=== PATIENT | male | born 2000 | race Caucasian/White ===

== ENCOUNTER 2020-04-17 10:18 | Observation (INO) ==
[2020-04-17] MEDS ORDERED: ONDANSETRON INJ 2 MG/ML 2 ML VIAL IV STA (10:59)
[2020-04-17] MEDS ORDERED: SODIUM CHLORIDE 0.9% 1000ML 1,000 ML IV SCH (11:00)
[2020-04-17] MEDS ORDERED: IOVERSOL 100ml IV ONE (11:06)
[2020-04-17 11:29] LABS: Basophils # (auto) 0.03 K/uL (0-0.2); Basophils % (auto) 0.3 %; Eosinophils # (auto) 0.01 K/uL (0-0.5); Eosinophils % (auto) 0.1 %; Hematocrit (blood only) 42.3 % (42-52); Hemoglobin 15.1 g/dL (14.0-18.0); Immature Granulocytes # (auto) 0.01 K/uL (0.00-0.02); Immature Granulocytes % (auto) 0.1 %; Lymphocytes # (auto) 1.77 K/uL (1.2-3.4); Lymphocytes % (auto) 16.6 %; Mean Corpuscular Hemoglobin 29.8 pg (25-34); Mean Corpuscular Hgb Conc 35.7 g/dL (32-36); Mean Corpuscular Volume 83.6 fL (80-100); Mean Platelet Volume 10.8 fL (7.4-10.4); Monocytes # (auto) 0.69 K/uL (0.11-0.59); Monocytes % (auto) 6.5 %; Neutrophils # (auto) 8.13 K/uL (1.4-6.5); Neutrophils % (auto) 76.4 %; Platelet Count 230 K/uL (130-400); RDW Coefficient of Variation 12.1 % (11.5-14.5); RDW Standard Deviation 36.5 fL (36.4-46.3); Red Blood Count 5.06 M/uL (4.7-6.1); White Blood Count 10.64 K/uL (4.8-10.8)
[2020-04-17 11:29] LABS: iSTAT Creatinine 0.9 mg/dl (0.6-1.3); iSTAT Hemoglobin 14.6 g/dl (14.0-18.0); iSTAT Ionized Calcium 1.26 mmol/l (1.12-1.32); iSTAT Potassium 3.7 mmol/L (3.3-5.0)
--- NOTE | 2020-04-17 11:30 | Emergency Department Note ---
Impression & Plan Abdominal pain, acute, left upper quadrant, Cerebral contusion, Contusion of hip ED Provider Note NAME: SD PERALTA IV AGE: 19 SEX: M : 2000 ARRIVES VIA: Walk-In INFORMANT: Patient, ED PROVIDER(S): Moy Mckeon DO CHIEF COMPLAINT: Left-sided abdominal pain HPI: The patient is a 19-year-old male who presented to the emergency department for an evaluation of abdominal pain. The patient states that he was drinking h eavily with friends last evening. He states that he "blacked out". The patient fell to the ground and he states that he struck the left hip. The patient has been having left-sided abdominal pain ever since. He denies having any nausea or vomiting. He has had no fevers. He denies having any chest pain neck pain or headache. The patient states that he has been able to ambulate without difficulty. He did not take any medications prior to arrival. The patient has had very significant episodes of nausea and vomiting. The patient is never had similar symptoms in the past. He states his pain is moderate to severe and worsened with ambulation as well as palpation over the abdomen. ROS: See above HPI for pertinent positives & negatives. A total of 10 systems reviewed and were otherwise negative. PAST MEDICAL HISTORY: See Below PAST SURGICAL HISTORY: See Below FAMILY HISTORY: See Below SOCIAL HISTORY: See Below HOME MEDICATIONS: See Below ALLERGIES: See Below VITALS: See Below PHYSICAL EXAMINATION: GENERAL: The patient is awake and alert. He is somewhat anxious appearing and appears to be in significant pain. EYES: The conjunctivae are clear. The pupils are round and reactive. EARS, NOSE, MOUTH AND THROAT: The nose is without any evidence of any deformity. Mucous membranes are dry. NECK: The neck is nontender and supple. RESPIRATORY: Normal respiratory effort is noted there is no evidence of wheezing rhonchi or rales CARDIOVASCULAR: Regular rate and rhythm noted there no murmurs rubs or gallops normal S1 normal S2. GASTROINTESTINAL: The abdomen is soft. There is significant left upper quadrant tenderness to palpation. There is mild guarding in the left upper quadrant. BACK: No midline tenderness or or step-off noted range of motion in flexion extension as well as rotation no signs of muscle spasm noted MUSCULOSKELETAL/EXTREMITIES: There is no evidence of gross deformity full range of motion is noted in the hips and shoulders. There is no tenderness over the rib cage. SKIN: There is no obvious evidence of any rash. There are no petechiae, pallor or cyanosis noted. No ecchymosis was appreciated over the flank. NEUROLOGIC: Patient is awake alert and oriented x3 strength is symmetric patellar reflexes are 2+ bilaterally MEDICAL DECISION MAKING: The patient is a 19-year-old male who presented to the emergency department for left-sided abdominal pain. The patient through the history appears to have been drinking significant amounts of alcohol last night. He states that he "blacked out" and may have fallen. He was having left hip pain as well as left-sided abdominal pain. He also is unsure if he struck his head. The patient had no focal neurologic deficits but given his presentation and the uncertainty CT the head neck was obtained as well as CT the abdomen and pelvis. Lungs were clear and chest x-ray showed no acute traumatic injury. I discussed the patient's lab oratory and radiographic studies with him. His abdominal pain improved significantly and there is no signs of splenic injury or intra-abdominal trauma. I also discussed his case with the [facility] hospitalist group as well as the [facility] neurologist. Likely patient will require repeat neuroimaging but I feel at this time he is safe to be kept at our facility. I discussed patient's laboratory and radiographic studies with him. Triage Nursing notes reviewed. Prior medical records reviewed Vital Signs: reviewed and remarkable for elevated blood pressure. Differential diagnosis: Appendicitis, testicular torsion, infections, diverticulitis, UTI, obstruction, mesenteric ischemia, aortic pathology, inflammatory bowel disease, renal colic, PUD, pancreatitis, biliary pathology, hernia, volvulus, constipation, as well as other pathologies. ER treatment provided: See below Diagnostics interpreted by me: ECG: none Cardiac Monitoring: An order was placed for continuous cardiac monitoring. The monitor shows a rate of 88 with normal sinus rhythm. Laboratory studies: As stated above and show below. Imaging studies: See below Consultation(s): 3646: I discussed this case with Dr. Jones. She was on-call for [facility] neurology. 1400: I discussed this case with Dr. Amanda. ED COURSE: Procedures: none PDMP:reviewed and no issues Critical Care: None Past Med/Surg History Family History (Updated 04/17/20 @ 14:42 by Jovan Amanda MD) Other No family history of disorders Social History (Updated 04/17/20 @ 11:28 by Moy Mckeon DO) Smoking Status: Never smoker Hx Alcohol Use: Yes Alcohol type: beer, wine and hard liquor Alcohol Intake Frequency: 2-3 x/Week Hx Substance Use: No Preferred Language: Bolivian Communication Ability: Effective Dinkey Operator Slag Required: No Beliefs That Will Affect Care: None Current Living Situation: Family Current Living Situation Comment: House Other Information That Helps Us Care for You: No Feels Safe at Home: Yes Safety Concerns: Feels Safe At This Time Allergies Allergies Allergy/AdvReac Type Severity Reaction Status Date / Time No Known Allergies Allergy Unverified 04/17/20 11:43 Home Meds Home Medications Medication Instructions Recorded Confirmed No Known Home Medications 04/17/20 04/17/20 Results & Data (ED) Vital Signs Vital Signs - 24 hr 04/17/20 10:44 04/17/20 11:31 04/17/20 12:00 Temperature 37.2 C Temperature Source Oral Pulse Rate 88 70 63 Pulse Rate from SpO2 Sensor 68 67 Respiratory Rate 18 12 15 Blood Pressure 141/76 H 130/64 135/81 Blood Pressure Mean 97 79 92 Pulse Oximetry 94 100 99 Oxygen Delivery Method Room Air Sepsis Recent Fever Within 48 Hours No Sepsis New/Unexplained Change in Mental Status No Sepsis Action Taken by Nursing No Action Required 04/17/20 13:00 04/17/20 13:01 04/17/20 13:30 Temperature Temperature Source Pulse Rate Pulse Rate from SpO2 Sensor 72 86 65 Respiratory Rate 18 21 17 Blood Pressure 132/65 127/76 Blood Pressure Mean 82 97 Pulse Oximetry 99 96 99 Oxygen Delivery Method Sepsis Recent Fever Within 48 Hours Sepsis New/Unexplained Change in Mental Status Sepsis Action Taken by Nursing 04/17/20 14:00 04/17/20 14:30 Temperature Temperature Source Pulse Rate 70 Pulse Rate from SpO2 Sensor 73 Respiratory Rate 24 17 Blood Pressure 149/79 H 155/88 H Blood Pressure Mean 101 106 Pulse Oximetry 98 99 Oxygen Delivery Method Sepsis Recent Fever Within 48 Hours Sepsis New/Unexplained Change in Mental Status Sepsis Action Taken by Intermediate Medications Current Medication List: was personally reviewed by me Laboratory Data Attestation: I reviewed the patient's lab results. Result diagrams: 04/17/20 11:10 04/17/20 11:10 Lab Results 08/04/17/20 04/17/20 Range/Units 11:10 11:10 11:16 WBC 10.64 (4.8-10.8) K/uL RBC 5.06 (4.7-6.1) M/uL Hgb 15.1 (14.0-18.0) g/dL POC Hgb 14.6 (14.0-18.0) g/dl Hct 42.3 (42-52) % POC Hct 43 (42-52) % MCV 83.6 (80-100) fL MCH 29.8 (25-34) pg MCHC 35.7 (32-36) g/dL RDW Std Deviation 36.5 (36.4-46.3) fL RDW Coeff of Hawa 12.1 (11.5-14.5) % Plt Count 230 (130-400) K/uL MPV 10.8 H (7.4-10.4) fL Immature Gran % (Auto) 0.1 % Neut % (Auto) 76.4 % Lymph % (Auto) 16.6 % [place] % (Auto) 6.5 % Eos % (Auto) 0.1 % Baso % (Auto) 0.3 % Neut # (Auto) 8.13 H (1.4-6.5) K/uL Lymph # (Auto) 1.77 (1.2-3.4) K/uL [place] # (Auto) 0.69 H (0.11-0.59) K/uL Eos # (Auto) 0.01 (0-0.5) K/uL Baso # (Auto) 0.03 (0-0.2) K/uL Immature Gran # (Auto) 0.01 (0.00-0.02) K/uL POC Sodium 138 (135-144) mmol/L Sodium 137 (136-145) mmol/L POC Potassium 3.7 (3.3-5.0) mmol/L Potassium 3.7 (3.5-5.1) mmol/L POC Chloride 99 L (101-112) mmol/L Chloride 102 (98-107) mmol/L Carbon Dioxide 28 (21-32) mmol/L POC Total CO2 25 (24-31) mmol/L Anion Gap 7.0 (3-11) POC Anion Gap 19.0 (16-25) mmol/L POC BUN 11 (7-18) mg/dl BUN 10 (7-18) mg/dl Creatinine 0.98 (0.6-1.4) mg/dl POC Creatinine 0.9 (0.6-1.3) mg/dl Est Cr Clr Drug Dosing 120.2 ml/min Est GFR ( Amer) 127.2 Est GFR (Non-Af Amer) 109.8 BUN/Creatinine Ratio 10.3 (10-20) Glucose 94 (70-99) mg/dl POC Glucose (other) 98 (70-99) mg/dl Calcium 9.8 (8.5-10.1) mg/dl POC Ioniz Calcium Flor 1.26 (1.12-1.32) mmol/l Total Bilirubin 0.8 (0.2-1) mg/dl AST 21 (15-37) U/L ALT 31 (12-78) U/L Alkaline Phosphatase 61 (45-117) U/L Total Protein 8.2 (6.4-8.2) gm/dl Albumin 4.6 (3.4-5.0) gm/dl Globulin 3.6 (2.5-4.0) gm/dl Albumin/Globulin Ratio 1.3 (0.9-2) Lipase 57 L (73-393) U/L Urine Color Urine Appearance (Clear) Urine pH (4.5-7.5) Ur Specific Allen (1.000-1.030) Urine Protein (Negative) Urine Glucose (UA) (Negative) Urine Ketones (Negative) Urine Blood (Negative) Urine Nitrite (Negative) Urine Bilirubin (Negative) Urine Urobilinogen (Negative) Ur Leukocyte Esterase (Negative) 04/17/20 Range/Units 13:22 WBC (4.8-10.8) K/uL RBC (4.7-6.1) M/uL Hgb (14.0-18.0) g/dL POC Hgb (14.0-18.0) g/dl Hct (42-52) % POC Hct (42-52) % MCV (80-100) fL MCH (25-34) pg MCHC (32-36) g/dL RDW Std Deviation (36.4-46.3) fL RDW Coeff of Hawa (11.5-14.5) % Plt Count (130-400) K/uL MPV (7.4-10.4) fL Immature Gran % (Auto) % Neut % (Auto) % Lymph % (Auto) % [place] % (Auto) % Eos % (Auto) % Baso % (Auto) % Neut # (Auto) (1.4-6.5) K/uL Lymph # (Auto) (1.2-3.4) K/uL [place] # (Auto) (0.11-0.59) K/uL Eos # (Auto) (0-0.5) K/uL Baso # (Auto) (0-0.2) K/uL Immature Gran # (Auto) (0.00-0.02) K/uL POC Sodium (135-144) mmol/L Sodium (136-145) mmol/L POC Potassium (3.3-5.0) mmol/L Potassium (3.5-5.1) mmol/L POC Chloride (101-112) mmol/L Chloride (98-107) mmol/L Carbon Dioxide (21-32) mmol/L POC Total CO2 (24-31) mmol/L Anion Gap (3-11) POC Anion Gap (16-25) mmol/L POC BUN (7-18) mg/dl BUN (7-18) mg/dl Creatinine (0.6-1.4) mg/dl POC Creatinine (0.6-1.3) mg/dl Est Cr Clr Drug Dosing ml/min Est GFR ( Amer) Est GFR (Non-Af Amer) BUN/Creatinine Ratio (10-20) Glucose (70-99) mg/dl POC Glucose (other) (70-99) mg/dl Calcium (8.5-10.1) mg/dl POC Ioniz Calcium Flor (1.12-1.32) mmol/l Total Bilirubin (0.2-1) mg/dl AST (15-37) U/L ALT (12-78) U/L Alkaline Phosphatase (45-117) U/L Total Protein (6.4-8.2) gm/dl Albumin (3.4-5.0) gm/dl Globulin (2.5-4.0) gm/dl Albumin/Globulin Ratio (0.9-2) Lipase (73-393) U/L Urine Color Yellow Urine Appearance Clear (Clear) Urine pH 7.5 (4.5-7.5) Ur Specific Allen 1.015 (1.000-1.030) Urine Protein Negative (Negative) Urine Glucose (UA) Negative (Negative) Urine Ketones Negative (Negative) Urine Blood Negative (Negative) Urine Nitrite Negative (Negative) Urine Bilirubin Negative (Negative) Urine Urobilinogen Negative (Negative) Ur Leukocyte Esterase Negative (Negative) Administered Medications Discontinued Medications Sodium Chloride (Nss 1000ml) 1,000 mls @ 999 mls/hr IV .Q1H1M LEBRON Stop: 04/17/20 12:00 Last Infusion: 04/17/20 12:25 Dose: 0 mls/hr Documented by: [id number] Admin: 04/17/20 11:24 Dose: 999 mls/hr Documented by: [id number] Ioversol (Ioversol 100ml) 93 ml IV ONCE ONE Stop: 04/17/20 11:07 Last Admin: 04/17/20 11:06 Dose: 93 ml Documented by: [id number] Ondansetron HCl (Ondansetron Inj 2 Mg/Ml 2 Ml Vial) 4 mg IV NOW STA Stop: 04/17/20 11:00 Last Admin: 04/17/20 11:24 Dose: 4 mg Documented by: [id number] Imaging Data Radiologist's Impression: CT OF THE CERVICAL SPINE CLINICAL HISTORY: Neck pain status post trauma COMPARISON STUDY: No previous studies for comparison. CT DOSE: 1404.45 mGy.cm TECHNIQUE: CT scan of the cervical spine was performed from the skull base to the thoracic inlet. Images are reviewed in the axial, sagittal, and coronal planes. IV contrast was not administered for this examination. A dose lowering technique was utilized adhering to the principles of ALARA. FINDINGS: The visualized portions of the lung apices reveal no evidence of pneumothorax. The prevertebral soft tissues are normal. No fractures or subluxations are visualized. IMPRESSION: No evidence of acute fracture or traumatic subluxation. ACT 112: Negative or not required by law. Electronically signed by: Ramírez Kulkarni M.D. 04/17/2020 12:48 PM Dictated: 04/17/20 1246 Transcribed: 04/17/[address] head/brain wo con CLINICAL HISTORY: Head pain status post trauma COMPARISON STUDY: No previous studies for comparison. TECHNIQUE: Axial CT of the brain is performed from the vertex to the skull base. IV contrast was not administered for this examination. A dose lowering technique was utilized adhering to the principles of ALARA. CT DOSE: FINDINGS: No intraventricular extra-axial mass lesions are visualized. There is no CT evidence of acute cortical infarction. There is no midline shift. There is a subtle 8mm focus of increased attenuation within the right parietal vertex posteriorly. In the setting of trauma, this may represent a small hemorrhagic cortical contusion. A hyperdense parenchymal mass such as a cavernoma could potentially appear similar There is no evidence of pathologic ventricular dilatation. There is no evidence of acute sinusitis IMPRESSION: 1. 8 mm focus of increased attenuation within the right posterior parietal vertex. In the setting of trauma, this likely represents a small hemorrhagic cortical contusion. 2. No calvarial fractures identified. ACT 112: Negative or not required by law. Electronically signed by: Ramírez Kulkarni M.D. 04/17/2020 12:46 PM Dictated: 04/17/20 1240 Transcribed: 04/17/20 1244 XR chest 1V portable CLINICAL HISTORY: Acute trauma COMPARISON STUDY: No previous studies for comparison. FINDINGS: The cardiac and mediastinal contours are normal. There is no evidence of focal pulmonary consolidation. There is no evidence of failure. No pleural effusions are visualized.[No pneumothorax is visualized. IMPRESSION: No active disease in the chest. ACT 112: Negative or not required by law. Electronically signed by: Ramírez Kulkarni M.D. 04/17/2020 11:36 AM Dictated: 04/17/20 1136 Transcribed: 04/17/[address] abd pelvis oral and IV con CLINICAL HISTORY: Left lower quadrant abdominal pain COMPARISON STUDY: None. TECHNIQUE: The patient was scanned following administration of dilute oral contrast, and in a dynamic helical fashion during intravenous administration of 93 cc of Optiray 320 A dose lowering technique was utilized adhering to the principles of ALARA. CT DOSE: FINDINGS: Lower chest: The heart is normal in size and configuration, without pericardial effusion. The lung bases and pleural spaces are clear. Liver: The contrast-enhanced liver is normal in size, contour, and attenuation. There is no intrahepatic biliary ductal dilatation. The hepatic veins and portal veins are patent. Gallbladder: Unremarkable. Spleen: Normal in size and attenuation. Pancreas: Unremarkable. Adrenal glands: Unremarkable. Kidneys: There is symmetric renal cortical enhancement. The kidneys are normal in size without hydronephrosis. Bowel: There are no transition zones to indicate bowel obstruction. There is no evidence of acute diverticulitis. There is no evidence of acute appendicitis Peritoneum: There is no intraperitoneal free air or abdominal ascites. Vasculature: The abdominal aorta is normal in course and caliber. Adenopathy: None. Pelvic viscera: The bladder, and pelvic viscera are unremarkable. Skeletal structures: No destructive osseous lesions are seen. IMPRESSION: 1. No acute intra-abdominal or pelvic findings 2. No evidence of bowel obstruction. No evidence of free air 3. No evidence of acute diverticulitis. No evidence of acute appendicitis. ACT 112: Negative or not required by law. Electronically signed by: Ramírez Kulkarni M.D. 04/17/2020 1:04 PM Dictated: 04/17/20 1300 Transcribed: 04/17/20 1300 Blood Pressure Blood Pressure Findings: Elevated blood pressure Blood Pressure Disposition: further management by hospitalist Discharge Plan Visit Data Chief Complaint: Abdominal Pain Stated Complaint: ABDOMINAL PAIN ED Provider: Moy Mckeon Discharge Problem: Abdominal pain, acute, left upper quadrant, Cerebral contusion, Contusion of hip Patient Disposition: Admitted As Inpatient Condition: Good Discharge Instructions Interventions: ED Discharge Assessment Last Done: 04/17/20 15:57
--- NOTE | 2020-04-17 11:37 | XRay Report ---
XR chest 1V portable CLINICAL HISTORY: Acute trauma COMPARISON STUDY: No previous studies for comparison. FINDINGS: The cardiac and mediastinal contours are normal. There is no evidence of focal pulmonary co nsolidation. There is no evidence of failure. No pleural effusions are visualized.[No pneumothorax is visualized. IMPRESSION: No active disease in the chest. ACT 112: Negative or not required by law. Electronically signed by: Ramírez Kulkarni M.D. 04/17/2020 11:36 AM
[2020-04-17 11:49] LABS: Albumin Level 4.6 gm/dl (3.4-5.0); BUN Creatinine Ratio 10.3 (10-20); Calcium 9.8 mg/dl (8.5-10.1); Creatinine Clr Calc Pharmacy 120.2 ml/min; Est GFR (African American) 127.2; Est GFR (Non-African American) 109.8; Potassium 3.7 mmol/L (3.5-5.1)
[2020-04-17 11:52] LABS: Albumin Globulin Ratio 1.3 (0.9-2); Bilirubin,Total 0.8 mg/dl (0.2-1); Globulin 3.6 gm/dl (2.5-4.0); Total Protein 8.2 gm/dl (6.4-8.2)
--- NOTE | 2020-04-17 12:47 | CT Scan Report ---
CT head/brain wo con CLINICAL HISTORY: Head pain status post trauma COMPARISON STUDY: No previous studies for comparison. TECHNIQUE: Axial CT of the brain is performed from the vertex to the skull base. IV contrast was not administered for this examination. A dose lowering technique was utilized adhering to the principles of ALARA. CT DOSE: FINDINGS: No intraventricular extra-axial mass lesions are visualized. There is no CT evidence of acute cortica l infarction. There is no midline shift. There is a subtle 8mm focus of increased attenuation within the right parietal vertex posteriorly. In the setting of trauma, this may represent a small hemorrhag ic cortical contusion. A hyperdense parenchymal mass such as a cavernoma could potentially appear sim ilar There is no evidence of pathologic ventricular dilatation. There is no evidence of acute sinusitis IMPRESSION: 1. 8 mm focus of increased attenuation within the right posterior parietal vertex. In the setting of trauma, this likely represents a small hemorrhagic cortical contusion. 2. No calvarial fractures identified. ACT 112: Negative or not required by law. Electronically signed by: Ramírez Kulkarni M.D. 04/17/2020 12:46 PM
--- NOTE | 2020-04-17 12:49 | CT Scan Report ---
CT OF THE CERVICAL SPINE CLINICAL HISTORY: Neck pain status post trauma COMPARISON STUDY: No previous studies for comparison. CT DOSE: 1404.45 mGy.cm TECHNIQUE: CT scan of the cervical spine was performed from the skull base to the thoracic inlet. Danika ges are reviewed in the axial, sagittal, and coronal planes. IV contrast was not administered for thi s examination. A dose lowering technique was utilized adhering to the principles of ALARA. FINDINGS: The visualized portions of the lung apices reveal no evidence of pneumothorax. The prevertebral soft tissues are normal. No fractures or subluxations are visualized. IMPRESSION: No evidence of acute fracture or traumatic subluxation. ACT 112: Negative or not required by law. Electronically signed by: Ramírez Kulkarni M.D. 04/17/2020 12:48 PM
--- NOTE | 2020-04-17 13:05 | CT Scan Report ---
CT abd pelvis oral and IV con CLINICAL HISTORY: Left lower quadrant abdominal pain COMPARISON STUDY: None. TECHNIQUE: The patient was scanned following administration of dilute oral contrast, and in a dynamic helical fashion during intravenous administration of 93 cc of Optiray 320 A dose lowering technique was utilized adhering to the principles of ALARA. CT DOSE: FINDINGS: Lower chest: The heart is normal in size and configuration, without pericardial effusion. The lung ba ses and pleural spaces are clear. Liver: The contrast-enhanced liver is normal in size, contour, and attenuation. There is no intrahepa tic biliary ductal dilatation. The hepatic veins and portal veins are patent. Gallbladder: Unremarkable. Spleen: Normal in size and attenuation. Pancreas: Unremarkable. Adrenal glands: Unremarkable. Kidneys: There is symmetric renal cortical enhancement. The kidneys are normal in size without hydron ephrosis. Bowel: There are no transition zones to indicate bowel obstruction. There is no evidence of acute div erticulitis. There is no evidence of acute appendicitis Peritoneum: There is no intraperitoneal free air or abdominal ascites. Vasculature: The abdominal aorta is normal in course and caliber. Adenopathy: None. Pelvic viscera: The bladder, and pelvic viscera are unremarkable. Skeletal structures: No destructive osseous lesions are seen. IMPRESSION: 1. No acute intra-abdominal or pelvic findings 2. No evidence of bowel obstruction. No evidence of free air 3. No evidence of acute diverticulitis. No evidence of acute appendicitis. ACT 112: Negative or not required by law. Electronically signed by: Ramírez Kulkarni M.D. 04/17/2020 1:04 PM
[2020-04-17 13:40] LABS: Appearance Urine Clear (Clear); Bilirubin Urine Negative (Negative); Blood Urine Negative (Negative); Color Urine Yellow; Glucose Urine UA Negative (Negative); Ketones Urine Negative (Negative); Leukocyte Esterase Urine Negative (Negative); Nitrite Urine Negative (Negative); Protein Urine Negative (Negative); Specific Gravity Urine 1.015 (1.000-1.030); Urobilinogen Urine Negative (Negative); pH Urine 7.5 (4.5-7.5)
--- NOTE | 2020-04-17 14:44 | History & Physical Report ---
Date of Service April 17, 2020 Assessment & Plan (1) Abnormal CT scan, head: Patient will be observed in our facility for this abnormal CT scan of the head as mentioned in HPI MRI scan of his brain will be undertaken do neurology checks every 4 hours. As mentioned for his hip discomfort a plain film of his hip and pelvis will be undertaken on admission (2) DVT prophylaxis: DVT preventions early ambulation chemoprophylaxis contraindicated with concern for cerebral contusion History of Present Illness Primary Care Provider: NO PCP 19-year-old male who presented to the emergency department for an evaluation of abdominal pain. The patient states that he was drinking heavily with friends last evening. He states that he "blacked out". The patient fell to the ground and he states that he struck the left hip. The patient has been having left- sided abdominal pain ever since. He denies having any nausea or vomiting. He has had no fevers. He denies having any chest pain neck pain or headache. The patient states that he has been able to ambulate without difficulty. He did not take any medications prior to arrival. The patient has had very significant episodes of nausea and vomiting. The patient is never had similar symptoms in the past. He states his pain is moderate to severe and worsened with ambulation as well as palpation over the abdomen. Patient underwent CAT scan of his head cervical spine abdomen and pelvis. On his head CT with there was a concern for an 8 mm focus of increased attenuation within the right posterior parietal vertex. This was considered perhaps a coup countercoup injury with a possible small hemorrhagic cortical contusion. Neurology was contacted by the emergency department and Dr. Jones recommended that the patient be observed in our facility with an additional image to evaluate for progression of change. The remainder of the other imaging studies of cervical spine abdominal pelvis CT were unremarkable for any findings. We will add an additional just plain x-ray of the left hip evaluate for bony injury as this was not specifically commented on are the no destructive osseous lesions being seen on the CT scan Patient himself is awake and alert he has no contusions to his scalp he is eating food and his abdominal pain is resolved upon my evaluation Allergies Allergy/AdvReac Type Severity Reaction Status Date / Time No Known Allergies Allergy Unverified 04/17/20 11:43 Home Medications Home Medications Medication Instructions Recorded Confirmed Type No Known Home Medications 04/17/20 04/17/20 History Past Med/Surg History Family History (Updated 04/17/20 @ 14:42 by Jovan Amanda MD) Other No family history of disorders Social History (Updated 04/17/20 @ 11:28 by Moy Mckeon DO) Smoking Status: Never smoker Hx Alcohol Use: Yes Alcohol type: beer Alcohol Intake Frequency: 2-3 x/Week Feels Safe at Home: Yes Review of Systems Review of Systems: Mild distress and fatigue no headache, blurry or double vision no speech or swallowing issues no chest pain, pressure or palpitations no shortness of breath, cough or wheezes Left-sided abdominal pain since resolved, nausea or vomiting, diarrhea or constipation no dysuria, hematuria or frequency Left hip focal joint pain since resolved, no significant swelling no back pain, CVA tenderness or radicular pain no bruising, bleeding or rashes no focal signs of weakness or numbness or altered sensation no complaints or anxiety or depression. Physical Exam Physical Exam: The patient appeared well nourished and normally developed. Vital signs as documented. Head exam is normocephalic atraumatic no scleral icterus there is no scalp contusion associated with this Neck is without JVD, thyromegaly, or carotid bruits. Lungs are clear to auscultation, no focal loss of breath sounds Cardiac exam, Rhythm is regular.. No murmurs, rubs or gallops. Abdominal exam reveals normal bowel sounds, soft non tender, no masses Extremities are nonedematous and both pedal pulses are normal. Neurologic exam is alert and oriented, no focal loss of strength or sensation Skin is without bruises or rashes Psychologically is without concerns for anxiety or depression. Results & Data Results & Data ([facility]) Vital Signs (Past 12 Hours) Vital Signs Temp Pulse Resp BP Pulse Ox 04/17/20 14:00 24 149/79 H 98 04/17/20 13:30 17 127/76 99 04/17/20 13:01 21 96 04/17/20 13:00 18 132/65 99 04/17/20 12:00 63 15 135/81 99 04/17/20 11:31 70 12 130/64 100 04/17/20 10:44 99.0 F 88 18 141/76 H 94 PG Care Time/CCT Total # of Minutes Spent Total Time Spent with Patient: Total time spent is greater than 50% in coordination of care (as documented) at patient's floor/unit and/or counseling patient: Coding Level of Care Code 57752 OBS Care - Level [address] scan, head R93.0 DVT prophylaxis Z29.9
[2020-04-17] MEDS ORDERED: ONDANSETRON INJ 2 MG/ML 2 ML VIAL IV PRN (16:09)
[2020-04-17] MEDS ORDERED: ACETAMINOPHEN 325 MG TAB PO PRN (16:09)
[2020-04-17] MEDS ORDERED: ALUMINUM/MAGNESIUM SUSP 30 ML UDC PO PRN (16:09)
--- NOTE | 2020-04-17 17:58 | XRay Report ---
XR hip LT 2V w pelvis CLINICAL HISTORY: Left hip pain status post trauma COMPARISON: None. DISCUSSION: No fractures or dislocations are visualized. There is contrast within the bladder seconda ry to a prior CT scan. IMPRESSION: No fractures or dislocations identified. ACT 112: Negative or not required by law. Electronically signed by: Ramírez Kulkarni M.D. 04/17/2020 5:57 PM
--- NOTE | 2020-04-18 08:17 | Magnetic Resonance Report ---
MRI OF THE BRAIN WITHOUT CONTRAST CLINICAL HISTORY: Right parietal contusion seen on CT COMPARISON STUDY: Head CT April 17, 2020. TECHNIQUE: Utilizing a 1.5 Marichuy magnet and dedicated coil, multiplanar, multiecho imaging of the bra in was performed without IV contrast. FINDINGS: There are no foci of restricted diffusion to suggest acute infarct. A 1.1 cm T2 hypointense focus within the right parietal lobe on axial image 16 of 24 shown on the gradient echo sequence cor responds to the finding on head CT. This suggests a small hemorrhagic contusion. This is unchanged si nce prior head CT. No additional foci are noted within the brain. Minimal white matter T2 hyperintens e foci suggest small vessel disease. Calvarial signal is normal. Orbits are unremarkable on this unen hanced exam. Flow-voids for the major intracranial vessels are present. IMPRESSION: No significant change in a 1.1 cm T2 hypointense focus within the right parietal lobe si nce prior head CT. This suggests a small hemorrhagic contusion. No mass effect. No additional foci of intracranial hemorrhage. ACT 112: Negative or not required by law. Electronically signed by: Armando Garcia M.D. 04/18/2020 8:16 AM
--- NOTE | 2020-04-18 13:40 | Discharge Summary ---
Date of Service April 18, 2020 Admission HPI Per Admitting Provider 19-year-old male who presented to the emergency department for an evaluation of abdominal pain. The patient states that he was drinking heavily with friends last evening. He states that he "blacked out". The patient fell to the ground and he states that he struck the left hip. The patient has been having left- sided abdominal pain ever since. He denies having any nausea or vomiting. He has had no fevers. He denies having any chest pain neck pain or headache. The patient states that he has been able to ambulate without difficulty. He did not take any medications prior to arrival. The patient has had very significant episodes of nausea and vomiting. The patient is never had similar symptoms in the past. He states his pain is moderate to severe and worsened with ambulation as well as palpation over the abdomen. Patient underwent CAT scan of his head cervical spine abdomen and pelvis. On his head CT with there was a concern for an 8 mm focus of increased attenuation within the right posterior parietal vertex. This was considered perhaps a coup countercoup injury with a possible small hemorrhagic cortical contusion. Neurology was contacted by the emergency department and Dr. Jones jose a mmended that the patient be observed in our facility with an additional image to evaluate for progression of change. The remainder of the other imaging studies of cervical spine abdominal pelvis CT were unremarkable for any findings. We will add an additional just plain x-ray of the left hip evaluate for bony injury as this was not specifically commented on are the no destructive osseous lesions being seen on the CT scan Patient himself is awake and alert he has no contusions to his scalp he is eating food and his abdominal pain is resolved upon my evaluation Admission Exam Per Admitting Provider The patient appeared well nourished and normally developed. Vital signs as documented. Head exam is normocephalic atraumatic no scleral icterus there is no scalp contusion associated with this Neck is without JVD, thyromegaly, or carotid bruits. Lungs are clear to auscultation, no focal loss of breath sounds Cardiac exam, Rhythm is regular.. No murmurs, rubs or gallops. Abdominal exam reveals normal bowel sounds, soft non tender, no masses Extremities are nonedematous and both pedal pulses are normal. Neurologic exam is alert and oriented, no focal loss of strength or sensation Skin is without bruises or rashes Psychologically is without concerns for anxiety or depression. Principal Diagnosis Head Contusion Discharge Exam Constitutional well developed and well nourished Eyes PERRL, conjunctivae normal, anicteric sclerae ENMT external ear and nose normal, oropharynx normal Respiratory normal respiratory effort, lungs clear to auscultation Cardiovascular RRR, no murmur, no edema Gastrointestinal (Abdomen) normal bowel sounds, soft, nontender, no hepatosplenomegaly Musculoskeletal no cyanosis or clubbing, extremities motor strength 5/5 Neurologic patellar DTR's 2+ bilat, sensation intact and PERRL, EOMI, accommodation nl, no face palsy, no dysarthria Psychiatric A+Ox3, euthymic affect Discharge Data Allergies Allergy/AdvReac Type Severity Reaction Status Date / Time No Known Allergies Allergy Unverified 04/17/20 11:43 Consultations 04/17/20 13:57 ED Decision to Admit Stat Ordered Studies 04/17/20 10:59 CT abd pelvis oral and IV con Stat CT head/brain wo con Stat 04/17/20 11:10 CT cervical spine wo con Stat 04/18/20 01:00 MR brain wo con Routine Hospital Course (1) Abnormal CT scan, head: Patient is a 19 year old male who presented to the ED with chief complaint of L abdominal pain, and L hip pain. L Abdominal and Hip Pain -Resolved on own Head Contusion -8 mm focus of increased attenuation within the right posterior parietal vertex. In the setting of trauma, this likely represents a small hemorrhagic cortical contusion noted on CT -MRI showed no expansion of the lesion. Lesion suggestive of small hemorrhagic conversion, but cavernoma more likely. -Recommended repeat head CT in 1 week for resolution. -Patient discharged home. (2) DVT prophylaxis: DVT preventions early ambulation chemoprophylaxis contraindicated with concern for cerebral contusion Total Time Total Time Spent Total Time Spent (In Minutes): <30 Discharge Plan Discharge Items Patient Disposition: Home - Self-Care Reason For Visit: CEREBRAL CONTUSION Discharge Diagnosis: Cerebral Contusion Condition on Discharge: Good Activity: Resume your previous activity Non-emergency contact: Primary Care Provider Call non-emergency contact if: your symptoms worsen Follow-up/Referrals: PCP,NO [Primary Care Provider] - Diet: Regular Ambulatory Orders: CT head/brain wo con (Routine) Timeframe: 1 Week Location: Determined by Patient Ordered By: Jovan Trimble Attending Provider Instructions: Mr. Otero, It was our pleasure caring for you at [facility] from 04/17/20 to 04/18/20. You were initially admitted due to having L sided abdominal pain, L sided hip pain, and concern for a head injury. You had noted that your abdominal pain and hip pain resolved on their own. Noted on your CT scan was a lesion concerning for a small brain hemorrhage (bleed) secondary to trauma or a fall. You had repeat imaging with a Brain MRI that showed the lesion had not changed in size. 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 We would like you to have a repeat head CT scan completed in roughly 1 weeks time to see if the lesion completely resolves, in which case it would have likely been a bleed. Please also follow up with your PCP in the next 1 week or sooner if you develop any symptoms of headache, dizziness, or weakness. Pending Studies at Discharge: No Stand-Alone Forms: My [facility], Smoking Cessation Medications and DC Order Prescriptions: No Action No Known Home Medications RF: 0 Discharge Orders: Discharge Order (Routine); Ordered 04/18/20 Ordered By: Jovan Webster Admission Data Admit Date/Time: 04/17/20 14:47 Attending Provider: Ashish Lutz Admit Provider: Jovan Amanda Primary Care Provider: PCP,NO Other Providers: Jovan Amanda ; Alverto Aldana Other Interventions: Discharge Summary Assessment (RN) Last Done: 04/18/20 13:42 Supervising Physician Co-Signing Physician Notes I personally examined the patient and verified all lu points of history and exam, discussed case, and agree with decision making with Dr Webster. feeling better feeling up to going home. no significant headache. no visual disturbances. has reliable PCP and notes that it would be no trouble having PCP facilitate repeat imaging vitals noted nad heent nc at mmm breathing unlabored no accessory muscles good effort. cn 2-12 grossly intact gross motor/sensory intact, no notable visual deficits LOC - from EtOH - resolved. concern on cerebral contusion - understandable w intoxicated LOC and not known possible injury mechanism - MRI appears more c/w cavernoma - his lack of headache/etc do as well. either way stable/safe for home - repeat CT 1wks, discussed "red flag" sx to watch for - but otherwise stable for home - he expressed understanding. stable for home, otherwise as above Resident Activity Tracking Resident Involvement: Resident Care Provided Care Provided: Adult Hospital Medicine
--- NOTE | 2020-04-18 18:51 | Billing Data ---
Date of Service April 18, 2020 Coding Level of Care Code 93543 OBS Care - Discharge
== END 2020-04-18 14:29 | disposition home or self-care (01) ==
LOC: ED 10:18 → 2N 10:18 → SUATTDRO 14:47 → 2N 15:57